=== PATIENT | female | born 1995 | race African-American/Black ===

== ENCOUNTER 2017-12-29 18:41 | Outpatient (CLI) | payer OTHER ==
[2017-12-29 19:04] VITALS: BP 101/56
[2017-12-30] MEDS ORDERED: PRENATAL TABLE1 EAC3 PO (07:53)
[2017-12-30] MEDS ORDERED: IBUPROFEN800 MG PO (08:40)
== END 2017-12-29 20:10 | disposition home or self-care (01) ==
LOC: LDRP-OP 18:41 → 2WEST 18:43
DX: O36.8130 Decreased fetal movements, third trimester, not applicable or unspecified (principal); Z3A.37 37 weeks gestation of pregnancy
CPT/HCPCS: 59025; G0378

== ENCOUNTER 2017-12-30 04:08 | Inpatient (IN) | payer OTHER ==
[2017-12-30] VITALS (12 sets, daily range): BP systolic 98–146; BP diastolic 55–114
[~2017-12-30] VITALS: Ht 167.6 cm; Wt 85.5 kg
[2017-12-30 05:51] LABS: BASOPHIL (%) 0.2 % (0-1); EOSINOPHIL (%) 1.4 % (0-5); EOSINOPHIL COUNT 0.2 K/uL (0-0.3); HEMATOCRIT 37.3 % (36.0-46.0); HEMOGLOBIN 12.3 G/DL (11.9-15.5); IMMATURE GRANULOCYTE (%) 0.9 % (0.0-0.7); LYMPHOCYTE (%) 17.5 % (15-42); LYMPHOCYTE COUNT 2.4 K/uL (1.0-2.8); MCH 29.5 PG (29.0-34.0); MCV 89.4 FL (83-99); MONOCYTE (%) 8.8 % (3-12); MONOCYTE COUNT 1.2 K/uL (0-0.8); NEUTROPHIL (%) 71.2 % (45-76); NEUTROPHIL COUNT 9.8 K/uL (1.8-6.4); PLATELET COUNT 158 K/uL (156-360); RBC DIS.WIDTH-CV 13.6 % (11.8-14.6); RBC DIS.WIDTH-SD 44.2 % (39-53); RED BLOOD COUNT 4.17 M/uL (3.80-5.20); WHITE BLOOD COUNT 13.7 K/uL (4.1-10.2)
[2017-12-30] MEDS ORDERED: PRENATAL TABLE1 EAC3 PO (07:53)
[2017-12-30] MEDS ORDERED: IBUPROFEN800 MG PO (08:40)
[2017-12-31 07:04] VITALS: BP 99/52
[2017-12-31 15:20] VITALS: BP 112/71
[2017-12-31 23:42] VITALS: BP 108/54
== END 2018-01-01 13:20 | disposition home or self-care (01) | DRG 775 ==
LOC: LDRP-OP 04:08 → 2WEST 04:09 → LDRP-OP 02-14 20:26
PROVIDERS: Nurse Practitioner
DX: O99.824 Streptococcus B carrier state complicating childbirth (principal); Z3A.37 37 weeks gestation of pregnancy; Z37.0 Single live birth; O71.82 Other specified trauma to perineum and vulva
CPT/HCPCS: 59025; 85025; C1755; G0378; J2540; J7120